=== PATIENT | female | born 1955 | race Native Hawaiian/Other Pacific Islander ===

== ENCOUNTER 2019-04-16 16:44 | Emergency (ER) | payer MEDICARE, BC, SELFPAY ==
[2019-04-16 16:59] VITALS: BP 168/69; PULSE 62; RESP 14; TEMP 36.3; O2SAT 100; BMI 25.0
--- NOTE | 2019-04-16 17:15 | DI.CT.S_ITS ---
PROCEDURE: CT HEAD/BRAIN WO CON INDICATIONS: dizzy TECHNIQUE: Noncontrast 4.5 mm thick angled axial sections acquired from the foramen magnum to the vertex, with coronal and sagittal reformats. For radiation dose reduction, the following was used: automated exposure control, adjustment of mA and/or kV according to patient size. COMPARISON: None. FINDINGS: Image quality: Excellent. CSF spaces: Basal cisterns are patent. No extra-axial fluid collections. The ventricles are symmetric in size and shape. Brain: No intracranial bleeds or masses. There is cerebral volume loss for age, with resultant ventricular and sulcal prominence. There are periventricular and deep white matter chronic small vessel ischemic changes. There is intracranial internal carotid artery atherosclerosis. Skull and face: Calvarium and visualized facial bones appear intact, without suspicious lesions. Sinuses: Visualized sinuses and mastoids are clear. IMPRESSION: 1. No acute intracranial abnormalities. 2. Cerebral volume loss and chronic microvascular ischemic changes. Dictated by: Nicole Velázquez M.D. on 04/16/2019 at 17:41 Approved by: Nicole Velázquez M.D. on 04/16/2019 at 17:42
[2019-04-16 17:21] LABS: Add Manual Diff / Slide Review NO; Basophils Absolute Auto 0 /uL (0-100); Basophils Percent Auto 0.5 % (0-2); Eosinophils Absolute Auto 100 /uL (0-450); Hematocrit 46.1 % (36-46); Hemoglobin 15.2 g/dL (12.0-16.0); Lymphocytes Absolute Auto 2300 /uL (1100-4500); Lymphocytes Percent Auto 33.7 % (25-40); Mean Corpuscular HGB Conc 33.1 % (30-36); Mean Corpuscular Volume 87.8 fL (80-100); Monocytes Absolute Auto 400 /uL (0-900); Monocytes Percent Auto 5.6 % (3-14); Neutrophils Absolute Auto 4100 /uL (1500-7000); Neutrophils Percent Auto 59.2 % (50-75); Platelet Count 300 X10^3/uL (150-400); Red Blood Cell Count 5.25 X10^6/uL (4.0-5.2); Red Cell Distribution Width 12.3 % (11.6-14.8); White Blood Cell Count 6.8 X10^3/uL (4.5-11.0)
--- NOTE | 2019-04-16 17:22 | ED_ITS ---
HPI - Headache General Chief Complaint: Headache Stated Complaint: chest pain and dizziness sent by [facility] Time Seen by Provider: 04/16/19 17:00 Source: patient and family Mode of arrival: ambulatory Limitations: no limitations History of Present Illness HPI Narrative: Patient is a 63-year-old female who presents with headache dizziness and nausea. She says it started last evening it definitely worse whenever she sits up or moves her head. Her headache is sensitive to light. Every time she opens her eyes she feels like the room is spinning and she has been vomiting. She sat on the stairs last night she threw up a cup better she would back to bed. She has been sleeping most of the day. However whenever she opens her eyes she still feels like the room is spinning. She denies any weakness numbness or tingling. She is having some chest discomfort as well all that apparently just started. No history of coronary artery disease. MD Complaint: headache Onset description: gradual Severity: mild Quality: aching and constant Related Data Previous Rx's Medication Instructions Recorded meclizine 25 mg PO TID PRN #20 tab 04/16/19 ondansetron 4 mg PO Q6-8H PRN #10 tab 04/16/19 Allergies Allergy/AdvReac Type Severity Reaction Status Date / Time No Known Drug Allergies Allergy Verified 04/16/19 17:25 Review of Systems Review of Systems ROS Unobtainable: All systems reviewed & are unremarkable except as noted in HPI and below Constitutional Denies chills, Denies fever(s), Denies lethargy and Denies weakness Eyes Denies change in vision, Denies eye discharge, Denies irritation and Denies loss of vision ENT Ears, Nose, Mouth, and Throat: Denies change in voice, Denies neck pain and Denies sore throat Cardiovascular Reports chest pain, Denies rapid heart rate, Denies edema, Denies lightheadedness, Denies dyspnea and Denies dyspnea on exertion Respiratory Denies cough, Denies dyspnea, Denies dyspnea on exertion and Denies wheezing Gastrointestinal Gastrointestinal: Denies melena, Reports nausea and Reports vomiting Genitourinary Denies hematuria, Denies flank pain, Denies urinary incontinence and Denies urinary urgency Musculoskeletal Denies neck pain Integumentary/Breasts Denies pruritus, Denies erythema, Denies rash and Denies wounds Neurologic Denies loss of vision and Denies weakness Allergic/Immunologic Denies wheezing FOR[facility]LY [facility] Medical History Patient denies significant medical history (Acute) Social History Smoking Status: Never smoker Social History Smoking Status: Never smoker Exam Initial Vital Signs Initial Vital Signs: Vital Signs Temperature 97.4 F L 04/16/19 16:59 Pulse Rate 62 04/16/19 16:59 Respiratory Rate 14 04/16/19 16:59 Blood Pressure 168/69 H 04/16/19 16:59 Pulse Oximetry 100 04/16/19 16:59 GENERAL: Patient in room keeping eyes closed HEENT: Head atraumatic,EOMI, pupils reactive, no nystagmus face symmetric, moist mucous membranes CARDIOVASCULAR: Regular rate and rhythm without murmurs, rubs or gallops. RESPIRATORY: Breath sounds equal bilaterally, no wheezes rales or rhonchi. ABDOMEN: Soft, nontender. Normoactive bowel sounds all 4 quadrants. No guarding or rebound. EXTREMITIES: Normal range of motion, no clubbing or edema. Neurovascularly intact NEUROLOGICAL: Alert and oriented x4.Normal gait and speech. Cranial nerves II through XII grossly intact. Component Prep Operator strength equal bilaterally SKIN: Warm, dry, no laceration, no petechiae, no rashes or lesions. Scores NIH Stroke Scale Level of Conciousness: Alert, keenly responsive Ask month/age: Answers both questions correctly. Open/close eyes, close hand: Performs both tasks correctly Best gaze horizontal: Normal Visual cervantes: No visual loss Facial palsy: Normal symetrical movement Left arm drift: No drift for full 10 sec Right arm drift: No drift for full 10 sec Left leg drift: No drift for full 10 sec Right leg drift: No drift for full 10 sec Limb ataxia: Absent Sensory on face/arms/legs: Normal, no sensory loss Best language: No aphasia, normal Dysarthria: Normal Extinction or inattention: No abnormality Total NIH Stroke scale score: 0 Course Orders Ordered: Discontinued Medications Sodium Chloride (Normal Saline 0.9%) 1,000 mls @ 1,000 mls/hr IV CONT NICK Last Infusion: 04/16/19 18:55 Dose: 0 mls/hr Admin: 04/16/19 17:29 Dose: 1,000 mls/hr Ketorolac Tromethamine (Toradol) 30 mg IV NOW ONE Stop: 04/16/19 17:16 Last Admin: 04/16/19 17:29 Dose: 30 mg Meclizine HCl (Antivert) 25 mg PO NOW ONE Stop: 04/16/19 17:15 Last Admin: 04/16/19 17:29 Dose: 25 mg Ondansetron HCl (Zofran) 4 mg IV NOW ONE Stop: 04/16/19 17:15 Last Admin: 04/16/19 17:28 Dose: 4 mg Vital Signs - 8 hr 04/16/19 16:59 Temperature 97.4 F L Pulse Rate 62 Respiratory Rate 14 Blood Pressure 168/69 H Pulse Oximetry 100 MDM - Headache Lab Data Attestation: I reviewed the patient's lab results. Result diagrams: 04/16/19 17:00 04/16/19 17:00 Lab Results 04/16/19 04/16/19 Range/Units 17:00 17:00 WBC 6.8 (4.5-11.0) X10^3/uL RBC 5.25 H (4.0-5.2) X10^6/uL Hgb 15.2 (12.0-16.0) g/dL Hct 46.1 H (36-46) % MCV 87.8 (80-100) fL MCH 29.0 (26-34) PG MCHC 33.1 (30-36) % RDW 12.3 (11.6-14.8) % Plt Count 300 (150-400) X10^3/uL Neut % (Auto) 59.2 (50-75) % Lymph % (Auto) 33.7 (25-40) % Calhoun % (Auto) 5.6 (3-14) % Eos % (Auto) 1.0 L (2-4) % Baso % (Auto) 0.5 (0-2) % Neut # (Auto) 4100 (3954-7727) /uL Lymph # (Auto) 2300 (9402-4507) /uL Calhoun # (Auto) 400 (0-900) /uL Eos # (Auto) 100 (0-450) /uL Baso # (Auto) 0 (0-100) /uL Sodium 143 (137-145) mmol/L Potassium 3.7 (3.4-5.1) mmol/L Chloride 105 (98-107) mmol/L Carbon Dioxide 25 (22-32) mmol/L BUN 19 H (7-17) mg/dL Creatinine 0.80 (0.52-1.04) mg/dL Estimated GFR > 60.0 (>60) mL/min BUN/Creatinine Ratio 23.8 H (6-22) Glucose 179 H (80-110) mg/dL Calcium 9.7 (8.4-10.2) mg/dL Total Bilirubin 0.6 (0.2-1.3) mg/dL AST 32 (14-36) IU/L ALT 39 (9-52) IU/L Alkaline Phosphatase 60 (38-126) U/L Total Creatine Kinase 67 (30-135) U/L CK-MB (CK-2) TNP CK-MB (CK-2) Rel Index TNP Troponin I < 0.012 (0.01-0.034) ng/mL Total Protein 7.2 (6.3-8.2) g/dL Albumin 4.5 (3.5-5.0) g/dL Globulin 2.7 (1.7-4.1) g/dL Albumin/Globulin Ratio 1.7 (1.0-2.8) Imaging Data CT scan - head: Radiologist's impression: PROCEDURE: CT HEAD/BRAIN WO CON INDICATIONS: dizzy TECHNIQUE: Noncontrast 4.5 mm thick angled axial sections acquired from the foramen magnum to the vertex, with coronal and sagittal reformats. For radiation dose reduction, the following was used: automated exposure control, adjustment of mA and/or kV according to patient size. COMPARISON: None. FINDINGS: Image quality: Excellent. CSF spaces: Basal cisterns are patent. No extra-axial fluid collections. The ventricles are symmetric in size and shape. Brain: No intracranial bleeds or masses. There is cerebral volume loss for age, with resultant ventricular and sulcal prominence. There are periventricular and deep white matter chronic small vessel ischemic changes. There is intracranial internal carotid artery atherosclerosis. Skull and face: Calvarium and visualized facial bones appear intact, without suspicious lesions. Sinuses: Visualized sinuses and mastoids are clear. IMPRESSION: 1. No acute intracranial abnormalities. 2. Cerebral volume loss and chronic microvascular ischemic changes. Dictated by: Nicole Velázquez M.D. on 04/16/2019 at 17:41 ECG Data Attestation: I personally reviewed and interpreted this ECG as follows: Prior ECG tracings: not available for review Interpretation: Sinus rhythm rate 59 T-wave inversion noted lead 3 no are T elevations or ST depressions no other T-wave inversions no priors to compare MDM Narrative Medical decision making narrative: Patient is overall feeling a little bit better. Able to open eyes. FEELS READY AND ABLE TO GO HOME. Discharge Plan Departure Patient Disposition: Home Clinical Impression: Vertigo Discharge Date/Time: 04/16/19 19:23 Interventions: ED Discharge Assessment Last Done: 04/16/19 19:21 Instructions: DI for Vertigo Activity Restrictions/Additional Instructions: *You have been diagnosed with vertigo *What to do: Rest, increase fluid *Continue to take medications as directed--> prescription sent to [facility] in [place] Meclizine 25-50 mg every 8 hours if needed for dizziness Zofran 4 mg every 6-8 hours if needed for nausea or vomiting recommend taking this priors meclizine if significantly nauseous *Follow up with your primary care provider in 2-3 days *Return to ER if you should have weakness persistent dizziness inability keep any food or liquid down or any new, worsening or concerning symptoms Prescriptions: New meclizine 25 mg tablet 25 mg PO TID PRN (Reason: dizziness) Qty: 20 RF: 0 ondansetron 4 mg tablet,disintegrating 4 mg PO Q6-8H PRN (Reason: nausea and vomiting) Qty: 10 RF: 0
--- NOTE | 2019-04-16 17:24 | PC.NURSE ---
pt spouse stated he gave his a tramadol because of her headache about an hour ago.
[2019-04-16 17:25] LABS: Alanine Aminotransferase 39 IU/L (9-52); Albumin 4.5 g/dL (3.5-5.0); Albumin Globulin Ratio 1.7 (1.0-2.8); Alkaline Phosphatase 60 U/L (38-126); Aspartate Aminotransferase 32 IU/L (14-36); BUN Creatinine Ratio 23.8 (6-22); Bilirubin Total 0.6 mg/dL (0.2-1.3); Blood Urea Nitrogen 19 mg/dL (7-17); Calcium 9.7 mg/dL (8.4-10.2); Carbon Dioxide 25 mmol/L (22-32); Chloride 105 mmol/L (98-107); Creatine Kinase 67 U/L (30-135); Estimated Glomerular Filt Rate > 60.0 mL/min (>60); Globulin 2.7 g/dL (1.7-4.1); Glucose 179 mg/dL (80-110); HEMOLYSIS < 15 (0-50); Potassium 3.7 mmol/L (3.4-5.1); Sodium 143 mmol/L (137-145); Total Protein 7.2 g/dL (6.3-8.2)
[2019-04-16] MEDS: ONDANSETRON 4 MG/2 ML INJ IV (17:28)
[2019-04-16] MEDS: KETOROLAC 60 MG/2 ML VIAL 30 MG IV (17:29)
[2019-04-16] MEDS: SODIUM CHLORIDE 0.9% 1,000 ML 1000 ML IV (17:29)
[2019-04-16] MEDS: MECLIZINE HCL 12.5 MG TABLET 25 MG PO (17:29)
[2019-04-16 17:37] LABS: Troponin I < 0.012 ng/mL (0.01-0.034)
--- NOTE | 2019-04-16 19:11 | PC.NURSE ---
patient was able to walk slowly, but still C/O diziness and weakness in legs. patient is stand by assist
[2019-04-16 19:21] VITALS: BP 153/67; PULSE 61; O2SAT 94
== END 2019-04-16 19:23 | disposition home or self-care (01) ==
PROVIDERS: Emergency Provider Emergency Medicine
DX: R42 Dizziness and giddiness (principal); R51 Headache; R07.9 Chest pain, unspecified
CPT/HCPCS: 36591; 70450; 80053; 82550; 84484; 85025; 93005; 93010; 96361; 96374; 96375; 99283; 99285; J1885; J2405

== ENCOUNTER → 2019-07-16 12:58 | Outpatient (CLI) | payer MEDICARE, BC, SELFPAY ==
--- NOTE | 2019-07-16 13:00 | DI.US.S_ITS ---
PROCEDURE: US PELVIC COMPLETE INDICATIONS: POSTMENOPAUSAL TECHNIQUE: Real-time scanning was performed of the pelvic organs, with image documentation. Additional endovaginal scanning was necessary due to incomplete visualization of the adnexal and endometrial structures by transabdominal scanning. COMPARISON: None. FINDINGS: Transabdominal scanning: Limited scanning through the kidneys shows no hydronephrosis. No pathologic free abdominal or pelvic fluid. Endovaginal scanning: Uterus: Uterus is normal in size at 7.1 x 3.0 x 4.0 cm. complex mass is visualized involving endometrial complex measuring 3.6 x 2.2 x 3.0 cm with surrounding fluid. Doppler assessment demonstrates peripheral vascularity. Nabothian cyst present. Ovaries: The right ovary measures 1.7 x 0.9 x 1.0 cm and there are multiple non-shadowing punctate echogenic foci. The left ovary is not visualized. IMPRESSION: 1. Abnormal appearance of the endometrial complex where there is a 3.6 cm vascular mass with surrounding endometrial free fluid. Findings highly worrisome for endometrial carcinoma and gynecologic consultation is recommended as well as endometrial biopsy. 2. Punctate foci involving the right ovary likely of no clinical significance. The left ovary is not visualized. Dictated by: Abad RAWLS Interpreted: Jaime Giraldo MD on 07/16/2019 at 15:38 Approved by: Jaime Giraldo M.D. on 07/16/2019 at 17:30
== END ==
PROVIDERS: Visit Provider Hospitalist
DX: N95.0 Postmenopausal bleeding (principal); N85.9 Noninflammatory disorder of uterus, unspecified
CPT/HCPCS: 76830; 76856

== ENCOUNTER → 2020-05-18 13:16 | Outpatient (CLI) | payer MEDICARE, BC, SELFPAY ==
--- NOTE | 2020-05-18 13:20 | DI.RAD.S_ITS ---
PROCEDURE: XR CERVICAL SPINE 4V OR 5V INDICATIONS: Cervical radiculopathy TECHNIQUE: 5 views of the cervical spine acquired. COMPARISON: None. FINDINGS: Bones: ACDF at C6-C7. There is fusion at this level. No fractures or dislocations to the superior endplate of T1 level. Mild bony neural foraminal narrowing at C6-C7 bilaterally. Small anterior osteophytes. Uncovertebral joint hypertrophy. Soft tissues: No prevertebral soft tissue swelling. IMPRESSION: Mild bony neural foraminal narrowing at C6-C7 bilaterally. ACDF at C6-C7 with fusion. Consider MRI of the cervical spine or CT for further evaluation. Dictated by: Edd Rios M.D. on 05/18/2020 at 13:58 Approved by: Edd Rios M.D. on 05/18/2020 at 14:00
== END ==
PROVIDERS: PCP Internal Medicine; Referring Provider Physical Medicine & Rehabilitation; Visit Provider Physical Medicine & Rehabilitation
DX: M54.12 Radiculopathy, cervical region (principal); Z98.1 Arthrodesis status; M48.02 Spinal stenosis, cervical region
CPT/HCPCS: 72050

== ENCOUNTER → 2020-06-06 14:07 | Outpatient (CLI) | payer MEDICARE, BC, SELFPAY ==
--- NOTE | 2020-06-06 14:11 | DI.MRI.S_ITS ---
PROCEDURE: MR CERVICAL SPINE WO CON INDICATIONS: axial neck pain s/p C6/7 fusion TECHNIQUE: Noncontrast sagittal T1 spin echo and T2 fast spin echo, sagittal STIR, foraminal oblique sagittal T2 fast spin echo, and axial gradient echo or T2 fast spin echo through the cervical spine. COMPARISON: None. FINDINGS: Image quality: Excellent. Postsurgical changes of C6-C7 ACDF with mature osseous fusion across the C6-C7 disc space. Straightening of the usual cervical lordosis at the operative levels. Otherwise normal alignment. No listhesis. Vertebral body heights maintained. No suspicious focal marrow signal abnormality. Normal configuration of the craniocervical junction without inferior cerebellar tonsillar ectopia. No cord signal abnormality or syrinx. Prevertebral and paraspinous soft tissues unremarkable. C2-C3: Posterior disc osteophyte complex flattens the ventral cord. No neural foraminal stenosis. C3-C4: Posterior disc osteophyte complex flattens the ventral cord. No neural foraminal stenosis. C4-C5: Posterior disc osteophyte complex flattens the ventral cord. CSF ventral to the cord is entirely effaced. There is mild buckling of the ligamentum flavum with further contributes to overall mild spinal canal stenosis. Facet and uncovertebral hypertrophy contribute to mild neural foraminal narrowing on the left. C5-C6: Posterior disc osteophyte complex flattens and indents the ventral cord producing overall moderate spinal canal stenosis in conjunction with buckling of the ligamentum flavum. Stenosis is worst in the left paracentral and subarticular zones. Facet and uncovertebral hypertrophy contribute to moderate bilateral neural foraminal stenosis. C6-C7: Posterior disc osteophyte complex abuts the left paracentral cord without cord mass effect. Facet and uncovertebral hypertrophy contribute to moderate left and mild right neural foraminal stenosis. C7-T1: No spinal canal stenosis. Mild bilateral neural foraminal stenosis related to uncovertebral spurring. IMPRESSION: Postsurgical changes of C6-C7 ACDF with mature fusion across the disc space and no evidence of an acute complicating hardware feature. Moderate spinal canal stenosis at C5-C6 with moderate bilateral neural foraminal stenosis, representing adjacent segment disease. Milder degenerative changes at C4-C5. Dictated by: Reza Liang M.D. on 06/06/2020 at 15:13 Approved by: Reza Liang M.D. on 06/06/2020 at 15:19
== END ==
PROVIDERS: PCP Internal Medicine; Referring Provider Internal Medicine; Visit Provider Physical Medicine & Rehabilitation
DX: M54.2 Cervicalgia (principal); M47.22 Other spondylosis with radiculopathy, cervical region; M48.02 Spinal stenosis, cervical region; Z98.1 Arthrodesis status
CPT/HCPCS: 72141

== ENCOUNTER → 2020-06-15 13:01 | Outpatient (CLI) | payer MEDICARE, BC, SELFPAY ==
--- NOTE | 2020-06-15 13:02 | DI.RAD.S_ITS ---
PROCEDURE: XR LUMBAR SPINE MIN 4V INDICATIONS: Acute low back pain TECHNIQUE: 4 total views of the lumbar spine were acquired, including bilateral oblique views. COMPARISON: None. FINDINGS: Bones: Mild levoconvex scoliotic curvature is noted. Minimal anterolisthesis is seen at the L3-L4 level. The disc heights are relatively well preserved. Lower lumbar spine facet arthropathy is seen. Soft tissues: Overlying bowel gas pattern is normal. No suspicious soft tissue calcifications. Oblique images: No pars defects. IMPRESSION: Levoconvex scoliotic curvature and mild degenerative changes are seen. Dictated by: Geronimo Hood M.D. on 06/15/2020 at 12:18 Approved by: Geronimo Hood M.D. on 06/15/2020 at 12:19
== END ==
PROVIDERS: PCP Internal Medicine; Referring Provider Internal Medicine; Visit Provider Physical Medicine & Rehabilitation
DX: M54.5 Low back pain (principal); M47.816 Spondylosis without myelopathy or radiculopathy, lumbar region; M41.86 Other forms of scoliosis, lumbar region; M47.812 Spondylosis without myelopathy or radiculopathy, cervical region; Z98.1 Arthrodesis status
CPT/HCPCS: 72110; 99214

== ENCOUNTER → 2021-04-19 08:20 | Outpatient (CLI) | payer MEDICARE, BC, SELFPAY ==
--- NOTE | 2021-04-19 08:26 | DI.US.S_ITS ---
PROCEDURE: US ABDOMEN COMPLETE INDICATIONS: ABDOMINAL PAIN, history of endometrial cancer 2019 TECHNIQUE: Real-time scanning was performed of the abdominal and retroperitoneal organs, with image documentation. COMPARISON: None. FINDINGS: Liver: Hepatic parenchyma shows geographic increased echogenicity consistent with fatty infiltration. Gallbladder: Unremarkable. No gallbladder wall thickening or pericholecystic fluid. Biliary ducts: Intrahepatic bile ducts are non-dilated. Extrahepatic bile duct caliber measures 2.8 mm. Normal is 6-7 mm or less in diameter, or 10 mm or less post-cholecystectomy. Pancreas: Visualized portions of the pancreas are sonographically normal. Spleen: Spleen is normal in size and homogeneous in echotexture. Kidneys: Kidneys are normal in size and echotexture. Right kidney measures 10.9 cm long; left kidney measures 10.6 cm long. No hydronephrosis or nephrolithiasis. No solid masses. Aorta: Visualized aorta is normal in caliber at less than 3 cm. Iliacs: Proximal common iliac arteries are normal in caliber at less than 2.5 cm. IVC: Intrahepatic inferior vena cava is patent. Miscellaneous: No free abdominal fluid. IMPRESSION: Focal hepatic fatty infiltration. Otherwise unremarkable ultrasound abdomen. Dictated by: Ty Leal M.D. on 04/19/2021 at 12:03 Approved by: Ty Leal M.D. on 04/19/2021 at 12:07
[2021-04-19 08:34] LABS: Bacteria Urine None Seen; WBC Urine None Seen (0-5/HPF)
[2021-04-19 09:41] LABS: Appearance Urine UA CLEAR; Bilirubin Urine UA NEGATIVE (NEGATIVE); Color Urine UA YELLOW; Glucose Urine UA 2+ g/dL (Negative); Ketones Urine UA 1+ (NEGATIVE); Leukocyte Esterase Urine UA NEGATIVE (NEGATIVE); Nitrite Urine UA NEGATIVE (Negative); Occult Blood Urine UA TRACE-INTACT (Negative); Protein Urine UA NEGATIVE (Negative); Urobilinogen Urine UA 0.2 E.U./dL (0.2)
[2021-04-19 09:44] LABS: pH Urine UA 5.5 (4.5-8.0)
[2021-04-19 09:46] LABS: Add Manual Diff / Slide Review NO; Basophils Absolute Auto 0 /uL (0-100); Basophils Percent Auto 0.6 % (0-2); Eosinophils Absolute Auto 100 /uL (0-450); Eosinophils Percent Auto 1.7 % (2-4); Hematocrit 43.4 % (36-46); Hemoglobin 14.1 g/dL (12.0-16.0); Lymphocytes Absolute Auto 1000 /uL (1100-4500); Lymphocytes Percent Auto 24.8 % (25-40); Mean Corpuscular HGB Conc 32.5 % (30-36); Mean Corpuscular Hemoglobin 27.5 PG (26-34); Mean Corpuscular Volume 84.9 fL (80-100); Monocytes Absolute Auto 300 /uL (0-900); Monocytes Percent Auto 8.4 % (3-14); Neutrophils Absolute Auto 2500 /uL (1500-7000); Neutrophils Percent Auto 64.5 % (50-75); Platelet Count 268 X10^3/uL (150-400); Red Blood Cell Count 5.12 X10^6/uL (4.0-5.2); Red Cell Distribution Width 14.9 % (11.6-14.8); White Blood Cell Count 3.9 X10^3/uL (4.5-11.0)
[2021-04-19 09:51] LABS: Culture Indicated Urine Cult Not Indicated; RBC Urine 0-1/HPF (0-5/HPF)
[2021-04-19 10:01] LABS: Alanine Aminotransferase 37 IU/L (<35); Albumin 4.5 g/dL (3.5-5.0); Albumin Globulin Ratio 1.6 (1.0-2.8); Alkaline Phosphatase 50 U/L (38-126); Aspartate Aminotransferase 34 IU/L (14-36); BUN Creatinine Ratio 53.6 (6-22); Bilirubin Total 0.8 mg/dL (0.2-1.3); Blood Urea Nitrogen 30 mg/dL (7-17); Calcium 9.4 mg/dL (8.4-10.2); Carbon Dioxide 25 mmol/L (22-32); Chloride 108 mmol/L (98-107); Estimated Glomerular Filt Rate > 60.0 mL/min (>60); Globulin 2.8 g/dL (1.7-4.1); Glucose 148 mg/dL (80-110); HEMOLYSIS < 15 (0-50); Lipase 179 U/L (23-300); Potassium 4.5 mmol/L (3.4-5.1); Sodium 141 mmol/L (137-145); Total Protein 7.3 g/dL (6.3-8.2)
== END ==
PROVIDERS: PCP Internal Medicine; Referring Provider Registered Nurse; Visit Provider Registered Nurse
DX: R10.2 Pelvic and perineal pain (principal); R10.9 Unspecified abdominal pain; R11.0 Nausea; K76.0 Fatty (change of) liver, not elsewhere classified; Z85.42 Personal history of malignant neoplasm of other parts of uterus
CPT/HCPCS: 76700; 80053; 81001; 83690; 85025

== ENCOUNTER → 2021-06-22 09:26 | Outpatient (CLI) | payer MEDICARE, BC, SELFPAY ==
--- NOTE | 2021-06-22 09:31 | DI.CT.S_ITS ---
PROCEDURE: CT CHEST ABD PEL W CON INDICATIONS: MALIGNANT NEOPLASM OF ENDO TECHNIQUE: After the administration of oral and intravenous contrast, axial sections acquired from the supraclavicular neck to the pubic symphysis. Coronal and sagittal reformats were performed. For radiation dose reduction, the following was used: automated exposure control, adjustment of mA and/or kV according to patient size. COMPARISON:[facility], CR, XR LUMBAR SPINE MIN 4V, 06/15/2020, 12:58. FINDINGS: Image quality: Portions of the spine are suboptimally evaluated secondary to metallic streak artifact from spinal fusion. CHEST: Lower Neck: No enlarged lymph nodes. Thyroid: Low-attenuation focus is present within the right thyroid lobe measuring approximately 6 mm. No priors are available for comparison. Axillae: No enlarged lymph nodes. Chest Wall: Bilateral breast implants are noted. Lungs and Airways: No consolidation or suspicious nodules. Pleura: No pneumothorax or pleural effusions. Heart: Heart size is normal. No pericardial effusion. Thoracic Vessels: The aorta and pulmonary arteries demonstrate normal size. Mediastinum and Divya: No enlarged lymph nodes. Esophagus: No wall thickening. No hiatal hernia. ABDOMEN: Liver: The liver demonstrates diffuse steatosis. There is an enhancing lesion in the superior right hepatic lobe series 2, image 45 measuring 1.2 x 1.4 x 1.3 cm. There is a low-attenuation nonenhancing lesion with Hounsfield units less than 20 in the hepatic dome measuring 0.5 x 0.8 by 0.5 cm. Gallbladder: Unremarkable. Biliary ducts: Unremarkable. Pancreas: Unremarkable. Spleen: Unremarkable. Adrenal Glands: Unremarkable. Kidneys and Ureters: Unremarkable. Stomach and Bowel: Stomach, small bowel loops, and colon are unremarkable. Colonic diverticula are present without associated inflammatory change. Peritoneum: No abnormal intraperitoneal fluid. No free air. Ventral Wall: No hernia. Abdominal Nodes: No retroperitoneal or mesenteric adenopathy by size criteria. Vessels: Aorta and inferior vena cava are normal in size. PELVIS: Pelvic Organs: Hysterectomy changes are present. Bladder: Unremarkable. Pelvic Nodes: No enlarged lymph nodes. Miscellaneous: No inguinal hernias are seen. Bones: Posterior fusion is present from T10 through L4. Multilevel areas of increased density are noted within the fusion level suspected to be related to cement from prior vertebral/kyphoplasties. However, underlying areas of sclerosis suspected to be related to metastatic disease particularly at L1 is suspected given appearance of compression deformity. In addition, C6-7 anterior fusion is also present. IMPRESSION: 1. Low-attenuation focus within the liver consistent with cysts. 2. Enhancing focus within the right hepatic lobe as above. It is overall nonspecific on the basis of this examination. While this could represent a hemangioma, other etiology such as metastatic disease cannot be excluded given history of prior malignancy. Further evaluation with MRI hepatic protocol is recommended. 3. Multilevel spinal fusion with suspected areas of underlying metastatic disease given appearance of compression deformities as well as increased sclerosis. No priors are available for comparison. As clinically indicated, further evaluation with bone scan or MRI lumbar spine with and without contrast may be obtained. 4. Low-attenuation thyroid focus, nonspecific without priors available for comparison. Thyroid ultrasound may be obtained as clinically indicated. Dictated by: Albina Schumacher M.D. on 06/22/2021 at 13:33 Approved by: Albina Schumacher M.D. on 06/22/2021 at 14:49
== END ==
PROVIDERS: PCP Internal Medicine; Referring Provider Specialist; Visit Provider Specialist
DX: C54.1 Malignant neoplasm of endometrium (principal); K76.9 Liver disease, unspecified; K57.90 Diverticulosis of intestine, part unspecified, without perforation or abscess without bleeding; Z98.1 Arthrodesis status
CPT/HCPCS: 71260; 74177; Q9967